=== PATIENT | female | born 1970 | race African-American/Black ===

== ENCOUNTER 2017-04-15 10:15 | Emergency (ER) | payer SELFPAY ==
[2017-04-15] MEDS ORDERED: Ketorolac Tromethamine 60 MG/2 ML VIAL ONE (12:03)
== END 2017-04-15 12:42 | disposition home or self-care (01) ==
LOC: ERS 10:15
DX: S39.011A Strain of muscle, fascia and tendon of abdomen, initial encounter (principal); M54.31 Sciatica, right side; Z71.6 Tobacco abuse counseling; F17.210 Nicotine dependence, cigarettes, uncomplicated; X58.XXXA Exposure to other specified factors, initial encounter
CPT/HCPCS: 96372; 99406; J1885